=== PATIENT | female | born 1995 | race Caucasian/White ===

== ENCOUNTER 2020-11-07 11:11 | Outpatient (CLI) | payer OTHER, SELFPAY ==
--- NOTE | 2020-11-07 11:00 | US_ITS ---
WS: [id number] TRANSABDOMINAL PELVIC AND TRANSVAGINAL PELVIC ULTRASOUND HISTORY: pelvic/back pain w abnormal menstrual tissue COMPARISON: None available. Uterus: 8.3 cm x 5.8 cm x 5.9 cm. Uterus retroverted on transabdominal imaging. Endometrium: 1.4 cm. Very mildly thickened, top normal size of the endometrium. Endometrium is hetero geneous with areas of decreased echogenicity. Right ovary: 3.3 cm x 2.0 cm x 2.8 cm. Normal size, color Doppler and echogenicity. Left ovary: 3.3 cm x 1.3 cm x 2.7 cm. Normal size, color Doppler and echogenicity. No free fluid. US/US pelvic with transvaginal IMPRESSION: 1. Mildly heterogeneous appearance to the endometrium. Endometrium is top norm al size and heterogeneous which may indicate some retained blood products. Ther e is no increased vascularity. 2. No adnexal mass.
== END 2020-11-07 11:12 | disposition home or self-care (01) ==
LOC: RAD 11:19
PROVIDERS: PCP Nurse Practitioner Family; Visit Provider Family Medicine
DX: R10.2 Pelvic and perineal pain (principal); M54.9 Dorsalgia, unspecified
CPT/HCPCS: 76830; 76856; 81025; 85025

== ENCOUNTER 2021-01-19 15:54 | Outpatient (CLI) | payer OTHER, SELFPAY ==
--- NOTE | 2021-01-19 | USCV_ITS ---
Daily Khan Age: 25 Gender: F : 1995 Exam Date: 01/19/2021 16:09 Ordering Phys: Karime Wellington NP Technologist: BRENDA Exam Location: [facility] [place] Indication: RLE PAIN HISTORY: Lower extremity pain. PROCEDURES: Venous duplex imaging was performed in only the right lower extremity. The following venous structures were evaluated: common femoral vein, profunda vein, proximal portion of the greater saphenous vein, superficial femoral vein, and the popliteal vein. Serial compression, augmentation maneuvers, and spectral Doppler flow evaluation were performed. FINDINGS: Normal 2-D Doppler and augmentation and compressibility throughout the lower extremity venous structures. Additional imaging through the proximal calf veins also reveals no thrombus. Limited evaluation of the greater saphenous vein is patent with no thrombus.. CONCLUSIONS No DVT right lower extremity. Dr. Lynn Ahn DO (Electronically Signed) Final Date: 19 January 2021 16:25 S
== END 2021-01-19 15:55 | disposition home or self-care (01) ==
LOC: RAD 15:58
PROVIDERS: PCP Nurse Practitioner Family; Visit Provider Nurse Practitioner Family
DX: M79.604 Pain in right leg (principal); R60.0 Localized edema
CPT/HCPCS: 93971

== ENCOUNTER 2021-01-20 13:57 | Outpatient (CLI) | payer OTHER, SELFPAY ==
--- NOTE | 2021-01-20 14:03 | CT_ITS ---
WS: [id number] CT PELVIS WITHOUT CONTRAST. HISTORY: RIGHT LEG PAIN, EDEMA, ELEVATED D-DIMER TECHNIQUE: Contiguous imaging is performed of the pelvis without contrast. Coronal and sagittal refor mats are reviewed. All CT scans at [facility] use at least one of these dose optimization techniques: automated exposure control; mA and/or kV adjustment per patient size (includes targeted exams where dose is matched to clinical indication); or iterative reconstruction. DLP: 898.28 mGycm COMPARISON: None available. No pelvic fractures or destructive bone lesions. Hip joints are normal. The uterus is slightly retrof lexed. No pelvic masses are identified. No inflammatory changes or fluid. There are a few small benig n-appearing lymph nodes in the RIGHT lower quadrant. Normal appendix. CT/CT pelvis wo con [id number] IMPRESSION: Negative CT pelvis. Notified Pal Mcgarry MD at 01/20/2021 2:28 PM. He was not available at this t kirk.
== END 2021-01-20 13:58 | disposition home or self-care (01) ==
PROVIDERS: PCP Nurse Practitioner Family; Visit Provider Family Medicine
DX: M79.604 Pain in right leg (principal); R60.0 Localized edema
CPT/HCPCS: 72192

== ENCOUNTER 2021-01-23 16:09 | Outpatient (CLI) | payer OTHER, SELFPAY ==
[2021-01-23 16:43] LABS: Basophils # 0.1 10^3/uL (0.0-0.1); Basophils % 0.6 %; Eosinophils # 0.1 10^3/uL (0.0-0.8); Eosinophils % 0.6 %; Hematocrit 37.8 % (37.0-47.0); Hemoglobin 11.4 g/dL (11.5-15.3); Lymphocytes # 3.7 10^3/uL (0.8-4.8); Lymphocytes % 31.8 %; Mean Corpuscular HGB Conc 30.2 g/dL (30.0-36.0); Mean Corpuscular Hemoglobin 23.9 pg (28.0-34.0); Mean Corpuscular Volume 79.4 fL (81-99); Mean Platelet Volume 10.7 fL (7.4-10.4); Monocytes # 0.6 10^3/uL (0.2-0.9); Neutrophils % 61.8 %; Nucleated Red Blood Cells % 0 %; Platelet Count 417 10^3/cmm (130-400); Red Blood Count 4.76 10^6/uL (4.1-5.3); Red Cell Distribution Width 14.3 % (12.1-15.1); White Blood Count 11.6 10^3/uL (4.0-10.0)
[2021-01-23 17:04] LABS: Alanine Aminotransferase 31 U/L (0-33); Alkaline Phosphatase 118 IU/L (35-105); Anion Gap 14.9 (5-19); Aspartate Amino Transferase 25 U/L (0-32); Blood Urea Nitrogen 12 mg/dL (6-20); Calcium 8.2 mg/dL (8.5-10.5); Carbon Dioxide 23 mmol/L (22-29); Chloride 104 mmol/L (98-107); Creatine Phosphokinase 136 U/L (26-192); Globulin 3.8 g/dL (1.3-4.6); Glomerular Filtration Rate 76.9 mL/min (90-130); Glucose 96 mg/dL (65-115); Osmolality Calculated 286 mOsm/kg (285-295); Potassium 3.9 mmol/L (3.5-5.1); Sodium 138 mmol/L (136-145); Total Bilirubin 0.2 mg/dL (0.15-1.2); Total Protein 7.8 g/dL (6.6-8.7)
== END 2021-01-23 16:10 | disposition home or self-care (01) ==
LOC: LAB 16:24
PROVIDERS: PCP Nurse Practitioner Family; Visit Provider Family Medicine
DX: R79.89 Other specified abnormal findings of blood chemistry (principal); R60.0 Localized edema; M79.604 Pain in right leg; D72.829 Elevated white blood cell count, unspecified
CPT/HCPCS: 36415; 80053; 82550; 85025

== ENCOUNTER 2021-03-06 03:50 | Emergency (ER) | payer OTHER, SELFPAY ==
[2021-03-06 03:56] VITALS: BP 126/79; PULSE 89; RESP 18; TEMP 36.8; O2SAT 98; BMI 37.8
--- NOTE | 2021-03-06 04:07 | W.ED.EXTPRO ---
HPI - Extremity Problem General: Chief complaint: Extremity Problem,Nontraumatic Stated complaint: SWELLING IN R LEG Time Seen by Provider: 03/06/21 04:03 Source: patient Mode of arrival: ambulatory Limitations: no limitations History of Present Illness: HPI Narrative: 25-year-old female states she been having bilateral lower leg swelling with right greater than left over the last 2 months. Patient was seen here 2 months ago and had a an ultrasound that was negative DVT. She is also seen at [facility] and saw the vascular surgeon had negative ultrasound work-ups. She states the swelling is continued and is now having some slight swelling in her left leg. She is got very slight pain. She states she is on her feet a lot at work. She denies any shortness of breath. Associated symptoms: Deny chest pain, fever(s) or rash Review of Systems Const: Denies: fever(s), chills, body aches or change in appetite Eyes: Denies: blurry vision or eye discomfort ENMT: Denies: throat pain or dental pain Card: Denies: chest pain Resp: Denies: dyspnea GI: Denies: abdominal pain, nausea, vomiting or diarrhea : Denies: dysuria Musc: Reports: extremity swelling; Denies: neck pain or back pain Skin/Breast: Denies: rash Neuro: Denies: headache(s) Psych: Denies: depression Maurice/Lymph: Denies: easy bruising All/Imm: Denies: urticaria PFS ED PFSH: Social History (Updated 11/07/20 @ 09:32 by Laila Powell LPN) Smoking and tobacco status: never smoked Alcohol intake: never Physical Exam Const: COMMON NORMALS: no acute distress, patient oriented x3 and healthy appearing HENMT: COMMON NORMALS: normocephalic and atraumatic HEAD & SCALP: normocephalic and atraumatic Eye: COMMON NORMALS: Equal, round and reactive pupils present and EOMs intact bilaterally PUPIL: Yes Equal, round and reactive pupils present Neck/C-Spine: COMMON NORMALS: full ROM and supple Chest: COMMONS NORMALS: normal inspection of the chest and normal palpation of entire chest wall Resp: COMMON NORMALS: normal respiratory effort, No retractions, No use of accessory muscles and clear to auscultation bilaterally AUSCULTATION: clear to auscultation bilaterally Cardio: COMMON NORMALS: regular rate, regular rhythm and No murmurs present (Cardio) RATE: regular rate RHYTHM: regular rhythm GI: COMMON NORMALS: Normal to inspection, nondistended, normoactive bowel sounds present, Soft to palpation, non-tender and no masses PALPATION: Yes Soft to palpation Extremity: COMMON NORMALS: normal to inspection and full ROM OTHER: slight swelling to bilateral legs with no tenderness, distal pulses intact Neuro: COMMON NORMALS: patient oriented x3, moves all extremities and no focal motor deficits Psych: COMMON NORMALS: mental status grossly normal, Normal thought process present and cooperative THOUGHT PROCESS: Normal thought process present Skin: COMMON NORMALS: no rashes or lesions noted and no wounds GENERAL SKIN EXAM: no rashes or lesions noted Course Vital Signs: Vital signs: Vital Signs Temperature 98.2 F 03/06/21 03:56 Pulse Rate 89 03/06/21 04:20 Respiratory Rate 18 03/06/21 03:56 Blood Pressure 126/79 03/06/21 03:56 Pulse Oximetry 98 03/06/21 03:56 MDM - Extremity (Nontraumatic) MDM Narrative: Medical decision making narrative: Patient presents here with leg swelling with no signs of DVT here. Patient's electrolytes and BNP are normal. Informed patient to start wearing compression stockings. She is stable for discharge and is to follow-up with PCP and return if worsening. Lab Data: Labs: Lab Results 03/06/21 Range/Units 04:16 Sodium 137 (136-145) mmol/L Potassium 3.6 (3.5-5.1) mmol/L Chloride 102 (98-107) mmol/L Carbon Dioxide 25 (22-29) mmol/L Anion Gap 13.6 (5-19) BUN 11 (6-20) mg/dL Creatinine 0.7 (0.5-0.9) mg/dL GFR Calculation 102.8 (90-130) mL/min Glucose 98 (65-115) mg/dL Calcium 8.6 (8.5-10.5) mg/dL NT-Pro-B Natriuret Pep 23 (0-125) pg/mL Discharge Plan Discharge Patient Disposition: Home Clinical Impression: Leg swelling Condition: Stable Prescriptions: No Action Balcoltra 0.1 mg-0.02 mg (21)/36.5 mg(7) tablet 1 tab PO DAILY RF: 0 norethindrone-e.estradiol-iron [Loestrin Fe 11/19 (28-Day)] 1 mg-20 mcg (21)/75 mg (7) tablet 1 tab PO DAILY RF: 0 hydrocodone-acetaminophen 5-325 mg tablet 1 tab PO Q8H PRN (Reason: pain) 5 Days Qty: 15 RF: 0 ibuprofen 600 mg tablet 600 mg PO Q8H PRN (Reason: pain) Qty: 30 RF: 1 Discharge Orders: Discharge ED (Routine); Ordered 03/06/21 Ordered By: Parvin Cherry Referrals: Karime Wellington NP [Primary Care Provider] - 1-3 days Discharge Diet: Advance as tolerated Discharge Activity: Resume usual activity Patient Instructions: Leg Edema (ED) Coding Level of Care Code 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
[2021-03-06 04:20] VITALS: PULSE 89
[2021-03-06 04:49] LABS: Anion Gap 13.6 (5-19); Blood Urea Nitrogen 11 mg/dL (6-20); Calcium 8.6 mg/dL (8.5-10.5); Carbon Dioxide 25 mmol/L (22-29); Chloride 102 mmol/L (98-107); Glomerular Filtration Rate 102.8 mL/min (90-130); Glucose 98 mg/dL (65-115); NT Pro B Type Natriuretic Pept 23 pg/mL (0-125); Osmolality Calculated 283 mOsm/kg (285-295); Potassium 3.6 mmol/L (3.5-5.1); Sodium 137 mmol/L (136-145)
[2021-03-06 05:00] VITALS: BP 118/77; PULSE 93; RESP 16; TEMP 36.8; O2SAT 98
== END 2021-03-06 05:01 | disposition home or self-care (01) ==
PROVIDERS: Emergency Provider Emergency Medicine; PCP Nurse Practitioner Family
DX: M79.89 Other specified soft tissue disorders (principal)
CPT/HCPCS: 80048; 83880; 99282

== ENCOUNTER 2021-05-22 19:41 | Emergency (ER) | payer OTHER, SELFPAY ==
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
[2021-05-22 20:01] VITALS: BP 124/85; PULSE 100; RESP 18; TEMP 36.8; O2SAT 98; BMI 34.7
[2021-05-22 20:09] VITALS: PULSE 100
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
[2021-05-22 20:30] VITALS: RESP 16
--- NOTE | 2021-05-25 09:55 | DCPLANNER ---
business management manager had message to schedule a follow up appointment for patient with ortho for a knee sprain. business management manager called the ortho clinic, spoke with Adela, gave clinic patients information. business management manager was told that patients information would be printed and reviewed. Clinic will call patient with appointment information.
--- NOTE | 2021-05-26 08:26 | DCPLANNER ---
Patient has a follow up appointment scheduled for Wednesday, May 26, 2021 at 1:[address] Miramontes at [facility]. Clinic will call patient with appointment information.
--- NOTE | 2021-06-04 11:52 | DCPLANNER ---
Patient had a follow up appointment scheduled with ortho on 05.26.21 - patient did attend appointment.
== END 2021-05-22 20:32 | disposition home or self-care (01) ==
PROVIDERS: Emergency Provider Emergency Medicine; PCP Nurse Practitioner Family
DX: S83.91XA Sprain of unspecified site of right knee, initial encounter (principal); W19.XXXA Unspecified fall, initial encounter; X50.1XXA Overexertion from prolonged static or awkward postures, initial encounter; Y92.481 Parking lot as the place of occurrence of the external cause
CPT/HCPCS: 73562; 99282

== ENCOUNTER 2021-06-10 16:22 | Outpatient (RCR) | payer OTHER, SELFPAY | END 2021-06-30 23:59 | disposition home or self-care (01) | LOC: SPT 16:22 | PROVIDERS: PCP Nurse Practitioner Family; Visit Provider Orthopaedic Surgery | DX: M25.561 Pain in right knee (principal) | CPT/HCPCS: 97032; 97110; 97161; G0283 ==

== ENCOUNTER 2021-07-01 06:00 | Outpatient (RCR) | payer OTHER, SELFPAY | END 2021-07-30 23:59 | disposition home or self-care (01) | LOC: SPT 06:00 | PROVIDERS: PCP Nurse Practitioner Family; Visit Provider Orthopaedic Surgery | DX: M25.561 Pain in right knee (principal) | CPT/HCPCS: 97110 ==